=== PATIENT | female | born 1985 | race African-American/Black ===

== ENCOUNTER 2020-07-01 08:19 | Emergency (ER) | payer OTHER ==
[~2020-07-01] VITALS: Ht 177.8 cm; Wt 90.0 kg
[2020-07-01] MEDS ORDERED: KETOROLAC 30MG/ML VIAL IM ONE (09:15)
[2020-07-01 09:47] VITALS: BP 112/78
== END 2020-07-01 09:47 | disposition home or self-care (01) ==
LOC: ER 08:47
DX: S20.219A Contusion of unspecified front wall of thorax, initial encounter (principal); S30.0XXA Contusion of lower back and pelvis, initial encounter; S16.1XXA Strain of muscle, fascia and tendon at neck level, initial encounter; V43.52XA Car driver injured in collision with other type car in traffic accident, initial encounter; Y93.89 Activity, other specified; Y92.488 Other paved roadways as the place of occurrence of the external cause
CPT/HCPCS: 71045; 81025; 96372; 99283; J1885

== ENCOUNTER 2020-07-29 11:07 | Emergency (ER) | payer MEDICAID, OTHER ==
[~2020-07-29] VITALS: Ht 177.8 cm; Wt 100.0 kg
[2020-07-29] MEDS ORDERED: HYDROCODONE/ACETAMINOPHEN 5/325MG TABLET PO ONE (11:30)
[2020-07-29 11:57] VITALS: BP 114/80
== END 2020-07-29 12:40 | disposition home or self-care (01) ==
LOC: ER 11:35
DX: M54.2 Cervicalgia (principal); M54.89 Other dorsalgia; Z87.828 Personal history of other (healed) physical injury and trauma
CPT/HCPCS: 71045; 99283

== ENCOUNTER 2021-12-27 05:39 | Emergency (ER) | payer MEDICAID, OTHER ==
[~2021-12-27] VITALS: Ht 177.8 cm; Wt 94.3 kg
[2021-12-27] MEDS ORDERED: ACETAMINOPHEN WITH CODEINE 300/30MG TABLET PO ONE (06:15)
[2021-12-27] MEDS ORDERED: IBUPROFEN 400MG TABLET PO ONE (06:15)
[2021-12-27] MEDS ORDERED: T3 PO (06:18)
[2021-12-27] MEDS ORDERED: IBUP-2028 PO (06:18)
[2021-12-27 06:51] VITALS: BP 98/60
== END 2021-12-27 07:00 | disposition home or self-care (01) ==
LOC: ER 05:39
DX: M79.18 Myalgia, other site (principal)
CPT/HCPCS: 99283